=== PATIENT | female | born 1965 | race Caucasian/White ===

== ENCOUNTER 2018-05-14 08:17 | Day surgery (SDC) | payer OTHER ==
[2018-05-14] VITALS (8 sets, daily range): BP systolic 122–158; BP diastolic 69–91; PULSE 68–88; TEMP 97.7
[~2018-05-14] VITALS: Ht 154.9 cm; Wt 74.4 kg
[2018-05-14 09:52] LABS: HEMATOCRIT 39.8 % (37.0-47.0); HEMOGLOBIN 13.5 g/dl (12.5-16.0); MEAN CELL VOLUME 86 fl (80.0-100.0); MEAN CORPUSCULAR HEMOGLOBIN 29 pg (27.0-31.0); MEAN CORPUSCULAR HGB CONC 34 g/dl (33.0-37.0); PLATELET COUNT 241 K/mm3 (130-400); RED BLOOD COUNT 4.64 M/mm3 (4.10-5.30); REDCELL DISTRIBUTION WIDTH-CV 12.3 % (11.5-14.5)
[2018-05-14 09:58] LABS: PROTHROMBIN TIME 10.9 SECONDS (9.7-12.8)
[2018-05-14 10:06] LABS: CALCIUM 9.4 mg/dL (8.4-10.2); CREATININE, serum 0.6 mg/dL (0.52-1.25); POTASSIUM 4.3 mmol/L (3.4-5.0)
[2018-05-14] MEDS ORDERED: PRINZIDE 12.5 M1 TA1 PO (10:31)
[2018-05-14] MEDS ORDERED: TENORMIN 5050 MG/TAB PO (10:32)
[2018-05-14] MEDS ORDERED: AMARYL 2MG T2 MG/TAB PO (10:33)
[2018-05-14] MEDS ORDERED: PROCARDIA XL 6060 MG PO (10:33)
[2018-05-14] MEDS ORDERED: JANUVIA 100MG100 MG PO (10:34)
[2018-05-14] MEDS ORDERED: GLUCOPHAGE500 MG/TAB PO (10:35)
[2018-05-14] MEDS ORDERED: VITAMIN D32000 IU (10:37)
[2018-05-14] MEDS ORDERED: CALCIUM CITRATE1 TA7 PO (10:39)
[2018-05-14] MEDS ORDERED: ASPIRIN E.C. 8181 MG PO (10:40)
[2018-05-14] MEDS ORDERED: LIPITOR 80MG80 MG PO (10:40)
[2018-05-14] MEDS ORDERED: OMEGA-3 FISH1000 MG PO (10:41)
== END 2018-05-14 17:00 | disposition home or self-care (01) ==
LOC: COL.CAR 08:17
PROVIDERS: Internal Medicine Cardiovascular Disease
DX: R07.9 Chest pain, unspecified (principal); R06.00 Dyspnea, unspecified; I10 Essential (primary) hypertension; E11.9 Type 2 diabetes mellitus without complications; E78.2 Mixed hyperlipidemia; R60.0 Localized edema; R53.83 Other fatigue; Z88.0 Allergy status to penicillin; Z79.82 Long term (current) use of aspirin; Z79.84 Long term (current) use of oral hypoglycemic drugs; Z83.3 Family history of diabetes mellitus; Z82.49 Family history of ischemic heart disease and other diseases of the circulatory system
CPT/HCPCS: C1894; J1644; J2250; J3010; Q9967